=== PATIENT | female | born 1935 | race Caucasian/White ===

== ENCOUNTER 2018-12-02 10:34 | Emergency (ER) | payer OTHER ==
[~2018-12-02] VITALS: Ht 154.9 cm; Wt 113.4 kg
[2018-12-02] MEDS ORDERED: PROZAC 10 MG CA10 MG PO (10:44)
[2018-12-02] MEDS ORDERED: NORCO 5-325 TA1 EACH PO (12:33)
[2018-12-02] MEDS ORDERED: PREDNISONE 20 M20 M1 PO (12:39)
[2018-12-02 12:58] VITALS: BP 185/78
== END 2018-12-02 13:13 | disposition home or self-care (01) ==
LOC: M.ERS 10:34
DX: M25.461 Effusion, right knee (principal); M25.561 Pain in right knee; F32.9 Major depressive disorder, single episode, unspecified

== ENCOUNTER → 2019-01-13 | Outpatient (CLI) | payer OTHER ==
[~2019-01-13] MED LIST: NORCO 5-325 TA1 EACH PO; PREDNISONE 20 M20 M1 PO; PROZAC 10 MG CA10 MG PO
== END ==
LOC: M.MRI 11:05
DX: S83.241A Other tear of medial meniscus, current injury, right knee, initial encounter (principal); M71.21 Synovial cyst of popliteal space [Baker], right knee; X58.XXXA Exposure to other specified factors, initial encounter; Y93.89 Activity, other specified; Y92.89 Other specified places as the place of occurrence of the external cause; Y99.8 Other external cause status

== ENCOUNTER → 2020-01-05 | Day surgery (SDC) | payer OTHER ==
[~2020-01-05] MED LIST changes: +ASPIRIN325 PO; +NORCO 5-325 TA1 EAC1 PO
--- NOTE | ~2020-01-05 | OP ---
[facility] [place] [address] [place] [address] OPERATIVE REPORT Name: MAHESH FUENTES Room: [facility]#: [id number] Admission: 01/05/20 Attend Phys: Elyl Ball DO Discharge: Date of : 39 Report #: [id number] THIS REPORT FOR: //name// cc: Dilshad Muñoz MD, Ram MD ~ THIS REPORT FOR: //name// CC: Elly Muñoz DATE OF SERVICE: 01/05/[address] lEly Ball. PREOPERATIVE DIAGNOSES: 1. Left knee medial meniscus tear. 2. Left knee medial femoral condyle, chondromalacia grade 3. POSTOPERATIVE DIAGNOSES: 1. Left knee medial meniscus tear, posterior horn. 2. Left knee medial femoral condyle, chondromalacia grade 3. PROCEDURE PERFORMED: Left knee arthroscopy with partial medial meniscectomy and chondroplasty of medial femoral condyle. SURGEON: Elly Ball DO PARTS DEPARTMENT SUPERVISOR: Lincoln Long DO TYPE OF ANESTHESIA: General with local. ESTIMATED BLOOD LOSS: 5 mL. SPECIMENS REMOVED: None. DRAINS: None. COMPLICATIONS: None. DISPOSITION: PACU and then to home. ANTIBIOTICS: 2 grams Ancef IV piggyback for operative procedure. TOURNIQUET TIME: Approximately 29 minutes at 300 mmHg. OPERATIVE FINDINGS: Diagnostic arthroscopy of the knee demonstrated extensive [facility] [address] [place] [address] [place] [address] OPERATIVE REPORT Name: MAHESH FUENTES Room: [facility]#: [id number] Admission: 01/05/20 Attend Phys: Elly Ball DO Discharge: Date of : 39 Report #: [id number] synovitis throughout all 3 compartments of the knee as well as a radial and complex posterior horn medial meniscus tear and the chondromalacia findings noted, most severe at the medial femoral condyle, grade 3. INDICATIONS FOR PROCEDURE: The patient is a very pleasant 84-year-old female who has been followed in [facility] for left knee pain. She had x-rays demonstrated some degenerative changes, but had some signs and symptoms of internal derangement. Therefore, MRI was ordered, which demonstrated a full thickness large posterior horn medial meniscus tear. Discussed the MRI findings with the patient and discussed treatment options going forward and the patient wanted to proceed with surgery after the risks, benefits, complications and indications of this were discussed. She understands possible complications of infection, continued pain after the surgery, need for longstanding antibiotics if the infection occurred, complication with anesthesia, DVT, PE, other possibilities as well. A consent was signed prior to the procedure. DESCRIPTION OF PROCEDURE: The patient was met within the preoperative suite and the correct left knee was marked. The patient was taken to the operating room and placed supine on a well-padded table. She was given the benefit of general anesthetic. Left knee was then positioned in the arthroscopic mcmillan and the left lower extremity was sterilely prepped and draped in standard fashion. At this point, a surgical timeout was completed, indicating the correct patient, operative site and procedure to be performed. All in the room were in agreement, we elected to proceed. Started with the anterolateral arthroscopic portal and this was made with a 15 blade scalpel. Next, the arthroscopic trocar was inserted followed by the camera and camera was then utilized to make the anteromedial portal. First, a spinal needle to confirm position. Next, the anteromedial portal. Skin was incised with a 15 blade scalpel and a blunt trocar was utilized to establish portal site. At this point, the diagnostic arthroscopy did demonstrate the above-mentioned findings and began to perform the partial medial meniscectomy using both arthroscopic biter, basket biter and the arthroscopic shaver technique until a stable partial meniscectomy was performed. The chondroplasty was also performed with the arthroscopic shaver. Excessive Hoffa's fat pad and synovitis was also debrided. After the procedure was complete, the tourniquet was let down. The arthroscopic fluid was evacuated from the knee and the portal sites were closed using 4-0 nylon in simple interrupted fashion. The joint cocktail was then injected into the joint consisting of Marcaine and Kenalog. Dressings consisted of Xeroform, 4 x 4 gauze, soft roll and an Geo wrap. The patient tolerated the procedure well and was awakened from anesthesia and transferred to PACU in stable condition. Needle and sponge counts were correct x 2 at the [place] [address] OPERATIVE REPORT Name: MAHESH FUENTES Room: [facility]#: [id number] Admission: 01/05/20 Attend Phys: Elly Ball, DO Discharge: Date of : 39 Report #: [id number] ATTESTATION: I attest that Dr. Elly Ball was present throughout all critical aspects of the case. By: [id number] Long DO /nt
[2020-01-05 06:42] LABS: HEMOGLOBIN 13.3 gm/dL (12.0-15.0); MCH 29.2 pg (26.0-34.0); MCHC 33.3 g/dL (28.0-37.0); MCV 87.9 fL (80.0-100.0); MPV 8.2 fl. (7.2-11.1); RBC 4.55 mil/uL (4.20-5.00); RDW-CV 14.8 % (10.5-14.5); WBC 9.7 thou/uL (4.0-11.0)
[2020-01-05 06:49] LABS: CALCIUM 8.2 mg/dL (8.5-10.1); CREATININE 0.9 mg/dL (0.6-1.3); POTASSIUM 3.9 mmol/L (3.5-5.1)
--- NOTE | 2020-01-05 11:11 | EKG ---
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
== END | disposition home or self-care (01) ==
LOC: M.SUR 01-04 07:04
PROVIDERS: Orthopaedic Surgery
DX: M23.222 Derangement of posterior horn of medial meniscus due to old tear or injury, left knee (principal); M94.262 Chondromalacia, left knee; M65.862 Other synovitis and tenosynovitis, left lower leg; Z79.899 Other long term (current) drug therapy; Z79.82 Long term (current) use of aspirin

== ENCOUNTER → 2020-03-25 | Outpatient (CLI) | payer OTHER | LOC: M.ULTRA 11:23 | PROVIDERS: ATTEND Orthopaedic Surgery | DX: Z47.89 Encounter for other orthopedic aftercare (principal); M79.605 Pain in left leg; M79.89 Other specified soft tissue disorders ==